=== PATIENT | female | born 1970 | race Caucasian/White ===

== ENCOUNTER 2016-09-18 23:48 | Emergency (ER) | payer OTHER | END 2016-09-19 02:45 | disposition home or self-care (01) | LOC: ER 23:48 | DX: S33.5XXA Sprain of ligaments of lumbar spine, initial encounter (principal); X50.0XXA Overexertion from strenuous movement or load, initial encounter; Z79.899 Other long term (current) drug therapy | CPT/HCPCS: 96372; 99282-25 ==